=== PATIENT | male | born 1955 | race African-American/Black ===

== ENCOUNTER 2018-05-30 13:46 | Inpatient (IN) | payer MEDICARE, MEDICAID ==
[~2018-05-30] VITALS: Ht 180.3 cm; Wt 78.9 kg
[2018-05-30] MEDS ORDERED: KEPP250 PO (13:52)
[2018-05-30] MEDS ORDERED: LEVETIRACETAM 1000MG/100ML 100 ML IV ONE (14:30)
[2018-05-30 14:43] LABS: BASOPHILS % 0.8 % (0.0-2.0); HEMATOCRIT. 36.6 % (42.0-52.0); HEMOGLOBIN. 12.2 g/dL (14.0-18.0); LYMPHOCYTES % 10.9 % (20.0-50.0); MEAN CORPUSCULAR HEMOGLOBIN 31.5 pg (28.0-32.0); MEAN PLATELET VOLUME 8.3 fl (7.4-10.4); MONOCYTES % 12.2 % (2.0-8.0); NEUTROPHILS % 75.1 % (40.0-76.0); PLATELET 257 x1000/uL (130-400); RED BLOOD CELL COUNT 3.85 mill/uL (4.7-6.1); RED CELL DISTRIBUTION WIDTH 13.8 % (11.6-14.6)
[2018-05-30 14:48] LABS: CHLORIDE 107 mEq/L (98-107)
[2018-05-30 14:52] LABS: ETHANOL BLOOD < 10 mg/dL
[2018-05-30] MEDS ORDERED: LORAZEPAM 2MG/ML CPJ IM STA (14:53)
[2018-05-30] MEDS ORDERED: LORAZEPAM 2MG/ML CPJ ONE (15:04)
[2018-05-30] MEDS ORDERED: LORAZEPAM 2MG/ML CPJ IV ONE (15:15)
[2018-05-30] MEDS ORDERED: SODIUM CHLORIDE 0.9% 1,000 ML IV ONE (19:30)
[2018-05-30 23:00] VITALS: BP_SYST 151; BP_SYST 168; BP_DIAS 78; BP_DIAS 87
[2018-05-30] MEDS ORDERED: CLONIDINE 0.1MG TABLET PO PRN (23:30)
[2018-05-30] MEDS ORDERED: LORAZEPAM 2MG/ML CPJ IV PRN (23:30)
[2018-05-31] MEDS ORDERED: DIPHENHYDRAMINE 50MG/ML VIAL IV PRN (02:30)
[2018-05-31 04:00] VITALS: BP 120/73
[2018-05-31 08:00] VITALS: BP 124/71
[2018-05-31] MEDS: AMLODIPINE 10MG TABLET PO SCH (10:38)
[2018-05-31] MEDS: LEVETIRACETAM 500MG TABLET PO SCH ×2 (10:38→20:39)
[2018-05-31 12:00] VITALS: BP 118/59
[2018-05-31 16:00] VITALS: BP 107/61
[2018-05-31 20:00] VITALS: BP 103/62
[2018-06-01] VITALS: BP 110/68
[2018-06-01] MEDS: LORAZEPAM 2MG/ML CPJ IV PRN (00:15)
[2018-06-01 04:00] VITALS: BP 110/74
[2018-06-01 05:59] LABS: *AMPHETAMINES SCREEN URINE NEGATIVE (NEGATIVE); *BARBITURATES SCREEN URINE NEGATIVE (NEGATIVE); *BENZODIAZEPINES SCREEN URINE PRESUMTIVE POSITIVE (NEGATIVE); *COCAINE SCREEN URINE NEGATIVE (NEGATIVE); METHADONE URINE SCREEN NEGATIVE (NEGATIVE)
[2018-06-01 06:00] LABS: CANNABINOID URINE SCREEN PRESUMTIVE POSITIVE (NEGATIVE); OPIATES URINE SCREEN NEGATIVE (NEGATIVE); PHENCYCLIDINE URINE SCREEN NEGATIVE (NEGATIVE)
[2018-06-01 08:00] VITALS: BP 129/77
[2018-06-01] MEDS: LEVETIRACETAM 500MG TABLET PO SCH ×2 (08:13→21:13)
[2018-06-01] MEDS: AMLODIPINE 10MG TABLET PO SCH (08:14)
[2018-06-01 12:00] VITALS: BP 118/69
[2018-06-01] MEDS: LACTULOSE 20G/30ML UDC PO SCH (12:37)
[2018-06-01 16:00] VITALS: BP 101/58
[2018-06-01 20:00] VITALS: BP 102/65
[2018-06-02] VITALS: BP 113/68
[2018-06-02 04:00] VITALS: BP 111/73
[2018-06-02 08:00] VITALS: BP 114/71
[2018-06-02] MEDS: AMLODIPINE 10MG TABLET PO SCH (09:03)
[2018-06-02] MEDS: LEVETIRACETAM 500MG TABLET PO SCH ×2 (09:03→20:43)
[2018-06-02 12:00] VITALS: BP 118/69
[2018-06-02] MEDS: LACTULOSE 20G/30ML UDC PO SCH (13:09)
[2018-06-02 16:00] VITALS: BP 108/66
[2018-06-02] MEDS: LORAZEPAM 2MG/ML CPJ IV PRN (16:00)
[2018-06-02 20:00] VITALS: BP 106/70
[2018-06-03] VITALS (9 sets, daily range): BP systolic 90–107; BP diastolic 55–68
[2018-06-03] MEDS: AMLODIPINE 10MG TABLET PO SCH (08:57)
[2018-06-03] MEDS: LACTULOSE 20G/30ML UDC PO SCH (09:13)
[2018-06-03] MEDS: LEVETIRACETAM 500MG TABLET PO SCH ×2 (09:13→20:56)
== END 2018-06-03 22:30 | DRG 101 ==
LOC: ER 13:51 → 8WST 16:44 → EDBEDREQ 17:04 → EDBEDREQTM 17:04 → ENRESERV 20:54 → EDBEDREQ 22:29 → 8WST 06-03 14:49
PROVIDERS: ADMIT Internal Medicine; ATTEND Internal Medicine
DX: G40.409 Other generalized epilepsy and epileptic syndromes, not intractable, without status epilepticus (principal); D64.9 Anemia, unspecified; I87.2 Venous insufficiency (chronic) (peripheral); I10 Essential (primary) hypertension; G31.9 Degenerative disease of nervous system, unspecified
CPT/HCPCS: 36415; 70551; 71045; 80305; 82140; 82962; 93005; 93970; 96361; 96365; 96372; 96375; 97116; 97162; 97530; 99285; G0482; J1200; J1953; J2060

== ENCOUNTER 2018-09-14 06:43 | Emergency (ER) | payer MEDICARE, MEDICAID ==
[~2018-09-14] VITALS: Ht 177.8 cm; Wt 77.0 kg
[2018-09-14] MEDS ORDERED: LEVETIRACETAM 1000MG/100ML 100 ML IV ONE (08:00)
[2018-09-14 08:28] LABS: BASOPHILS % 0.6 % (0.0-2.0); EOSINOPHILS % 0.2 % (0.0-5.0); HEMATOCRIT. 37.4 % (42.0-52.0); HEMOGLOBIN. 12.3 g/dL (14.0-18.0); LYMPHOCYTES % 10.3 % (20.0-50.0); MEAN CORPUSCULAR HEMOGLOBIN 30.9 pg (28.0-32.0); MEAN CORPUSCULAR VOLUME 94.3 fL (80.0-94.0); MEAN PLATELET VOLUME 7.6 fl (7.4-10.4); MONOCYTES % 12.7 % (2.0-8.0); NEUTROPHILS % 76.2 % (40.0-76.0); PLATELET 256 x1000/uL (130-400); RED BLOOD CELL COUNT 3.96 mill/uL (4.7-6.1); RED CELL DISTRIBUTION WIDTH 13.5 % (11.6-14.6)
[2018-09-14 08:34] LABS: CHLORIDE 104 mEq/L (98-107)
[2018-09-14 08:38] LABS: ETHANOL BLOOD < 10 mg/dL
[2018-09-14 08:42] LABS: CARBAMAZEPINE < 0.5 ug/mL (4-12)
[2018-09-14 08:45] LABS: PHENOBARBITAL < 2.1 ug/mL (15.0-40.0)
[2018-09-14 09:47] LABS: CLARITY URINE CLEAR (CLEAR); COLOR URINE YELLOW (YELLOW); KETONES URINE NEGATIVE (NEGATIVE); LEUKOCYTE ESTERASE URINE NEGATIVE (NEGATIVE); NITRITE URINE NEGATIVE (NEGATIVE); OCCULT BLOOD URINE 2+ (NEGATIVE); PROTEIN URINE NEGATIVE (NEGATIVE); SPECIFIC GRAVITY URINE 1.019 (1.005-1.030)
[2018-09-14 10:16] LABS: *AMPHETAMINES SCREEN URINE NEGATIVE (NEGATIVE); *BARBITURATES SCREEN URINE NEGATIVE (NEGATIVE); *BENZODIAZEPINES SCREEN URINE PRESUMTIVE POSITIVE (NEGATIVE)
[2018-09-14 10:17] LABS: CANNABINOID URINE SCREEN PRESUMTIVE POSITIVE (NEGATIVE); METHADONE URINE SCREEN NEGATIVE (NEGATIVE); OPIATES URINE SCREEN NEGATIVE (NEGATIVE); PHENCYCLIDINE URINE SCREEN NEGATIVE (NEGATIVE)
[2018-09-14 10:18] LABS: *COCAINE SCREEN URINE NEGATIVE (NEGATIVE)
[2018-09-14 11:36] VITALS: BP 141/86
[2018-09-16] MEDS ORDERED: [UNRECOGNIZED DRUG - REMARK] (22:04)
[2018-09-19] MEDS ORDERED: LEVE500T19 PO (17:54)
== END 2018-09-14 12:21 | disposition home or self-care (01) ==
LOC: ER 06:49
DX: G40.909 Epilepsy, unspecified, not intractable, without status epilepticus (principal)
CPT/HCPCS: 36415; 80053; 80156; 80165; 80184; 80185; 80305; 80320; 81003; 82962; 85025; 96365; 96366; 99283; J1953; G0480

== ENCOUNTER 2018-09-14 14:15 | Emergency (ER) | payer MEDICARE, MEDICAID ==
[~2018-09-14] VITALS: Ht 175.3 cm; Wt 72.5 kg
[2018-09-14] MEDS ORDERED: SODIUM CHLORIDE 0.9% 1,000 ML IV ONE (15:30)
[2018-09-14] MEDS ORDERED: LEVETIRACETAM 1000MG/100ML 100 ML IV NR (18:30)
[2018-09-14 20:21] VITALS: BP 154/90
[2018-09-16] MEDS ORDERED: [UNRECOGNIZED DRUG - REMARK] (22:04)
[2018-09-19] MEDS ORDERED: LEVE500T19 PO (17:54)
== END 2018-09-14 20:42 | disposition home or self-care (01) ==
LOC: ER 14:15
DX: G40.909 Epilepsy, unspecified, not intractable, without status epilepticus (principal); D64.9 Anemia, unspecified; R00.0 Tachycardia, unspecified; F17.210 Nicotine dependence, cigarettes, uncomplicated; F12.10 Cannabis abuse, uncomplicated
CPT/HCPCS: 99283; J1953; J7030

== ENCOUNTER 2019-04-28 16:45 | Inpatient (IN) | payer MEDICARE, MEDICAID ==
[~2019-04-28] VITALS: Ht 172.7 cm; Wt 81.4 kg
[~2019-04-28 16:45] MED LIST: LEVE500T19 PO; [UNRECOGNIZED DRUG - REMARK]
[2019-04-28] MEDS ORDERED: LORAZEPAM 2MG/ML CPJ ONE (17:10)
[2019-04-28] MEDS ORDERED: SODIUM CHLORIDE 0.9% 1,000 ML IV ONE (17:10)
[2019-04-28] MEDS ORDERED: LORAZEPAM 2MG/ML CPJ IV ONE (17:15)
[2019-04-28] MEDS ORDERED: LEVETIRACETAM 500MG PREMIX 100 ML IV ONE (17:15)
[2019-04-28 18:33] LABS: CHLORIDE 103 mEq/L (98-107); INR 1.2; PROTHROMBIN TIME 11.9 sec (9.6-11.0)
[2019-04-28 18:34] LABS: BG BASE EXCESS 1.5 mmol/L (-2.0-2.0); BG CARBOXYHEMOGLOBIN 0.7 % (0.5-1.5); BG DEOXYHEMOGLOBIN 3.7 % (0.0-5.0); BG FRACTION INSPIRED OXYGEN 21; BG METHEMOGLOBIN 0.2 % (0.0-1.5); BG OXYGEN SATURATION 96.3 % (92.0-98.5); BG OXYHEMOGLOBIN 95.4 % (94.0-97.0); BG PCO2 40.4 mmHg (35.0-45.0); BG PH 7.426 (7.350-7.450); BG PO2 79.2 mmHg (75.0-100.0); BG SAMPLE SITE RIGHT RADIAL; BG TOTAL HEMOGLOBIN 13.2 g/dL (12.0-18.0); BG VENT MODE ROOM AIR
[2019-04-28 18:36] LABS: ETHANOL BLOOD < 10 mg/dL
[2019-04-28 18:46] LABS: HEMATOCRIT. 37.7 % (42.0-52.0); HEMOGLOBIN. 12.5 g/dL (14.0-18.0); MEAN CORPUSCULAR VOLUME 96.3 fL (80.0-94.0); MEAN PLATELET VOLUME 8.2 fl (7.4-10.4); PLATELET 255 x1000/uL (130-400); RED BLOOD CELL COUNT 3.91 mill/uL (4.7-6.1); RED CELL DISTRIBUTION WIDTH 13.9 % (11.6-14.6)
[2019-04-28 18:48] LABS: CARBAMAZEPINE < 0.5 ug/mL (4-12); PHENOBARBITAL < 2.1 ug/mL (15.0-40.0)
[2019-04-28] MEDS ORDERED: ASPIRIN 300MG SUPP PR ONE (19:00)
[2019-04-28] MEDS ORDERED: DOCUSATE SODIUM 100MG CAPSULE PO PRN (19:15)
[2019-04-28] MEDS ORDERED: ZOLPIDEM TARTRATE 5MG TABLET PO PRN (19:15)
[2019-04-28] MEDS ORDERED: NA PHOS,M-B/NA PHOS,DI-BA ENEMA 118ML PR PRN (19:15)
[2019-04-28] MEDS ORDERED: ACETAMINOPHEN 325MG TABLET PO PRN (19:15)
[2019-04-28] MEDS ORDERED: TRAMADOL 50MG TABLET PO PRN (19:15)
[2019-04-28] MEDS ORDERED: IPRATROPIUM/ALBUTEROL 0.5-3(2.5)MG/3ML NEB NEB PRN (19:15)
[2019-04-28] MEDS ORDERED: CLONIDINE 0.1MG TABLET PO PRN (19:15)
[2019-04-28] MEDS ORDERED: NITROGLYCERIN 0.4MG TABLET SL SL PRN (19:15)
[2019-04-28] MEDS ORDERED: MAGNESIUM/ALUMINUM HYDROXIDE/SIMETHICONE 30ML UDC PO PRN (19:15)
[2019-04-28] MEDS ORDERED: GUAIFENESIN 200MG/10ML SUGAR FREE UDC PO PRN (19:15)
[2019-04-28] MEDS ORDERED: LORAZEPAM 2MG/ML CPJ IV PRN (19:15)
[2019-04-28] MEDS ORDERED: ONDANSETRON HCL 4MG/2ML INJ IV PRN (19:15)
[2019-04-28 19:45] LABS: CREATINE KINASE MB FRACTION 17.4 ng/mL (0.5-3.6); PLATELET ESTIMATE NORMAL
[2019-04-28] MEDS ORDERED: ATORVASTATIN CALCIUM 40MG TABLET PO SCH (21:00)
[2019-04-29] VITALS (15 sets, daily range): BP systolic 108–136; BP diastolic 67–79
[2019-04-29] MEDS: ENOXAPARIN 100MG/ML SYR SUBCUT SCH ×2 (01:51→14:24)
[2019-04-29] MEDS ORDERED: PHENYTOIN SODIUM 1,000 MG in SODIUM CHLORIDE 0.9% 100 ML IV SCH (02:00)
[2019-04-29] MEDS: DIVALPROEX SODIUM 250MG DR TABLET PO SCH ×3 (08:33→21:23)
[2019-04-29] MEDS ORDERED: LEVETIRACETAM 500 MG in SODIUM CHLORIDE 0.9% 100 ML IV SCH (09:00)
[2019-04-29] MEDS ORDERED: LEVETIRACETAM 500MG PREMIX 100 ML IV SCH (09:30)
[2019-04-29] MEDS: FAMOTIDINE 20MG TABLET PO SCH ×2 (09:37→21:23)
[2019-04-29] MEDS: ASPIRIN 81MG EC TABLET PO SCH (09:37)
[2019-04-29] MEDS: CLOPIDOGREL 75MG TABLET PO SCH (09:39)
[2019-04-29] MEDS: ENOXAPARIN 80MG/0.8ML SYR SUBCUT SCH (21:23)
[2019-04-29] MEDS: LEVETIRACETAM 1,000 MG in SODIUM CHLORIDE 0.9% 100 ML IV SCH (21:23)
[2019-04-30] VITALS (12 sets, daily range): BP systolic 108–149; BP diastolic 66–97
[2019-04-30] MEDS: DIVALPROEX SODIUM 250MG DR TABLET PO SCH ×3 (05:17→22:02)
[2019-04-30] MEDS ORDERED: GADOBENATE DIMEGLUMINE 529 MG/ML 10ML IV ONE (08:24)
[2019-04-30] MEDS: ENOXAPARIN 80MG/0.8ML SYR SUBCUT SCH ×2 (09:47→22:03)
[2019-04-30] MEDS: LEVETIRACETAM 1,000 MG in SODIUM CHLORIDE 0.9% 100 ML IV SCH ×2 (09:47→22:03)
[2019-04-30] MEDS: FAMOTIDINE 20MG TABLET PO SCH ×2 (09:47→22:04)
[2019-04-30] MEDS: ASPIRIN 81MG EC TABLET PO SCH (09:47)
[2019-04-30] MEDS: CLOPIDOGREL 75MG TABLET PO SCH (09:47)
[2019-04-30 11:01] LABS: *AMPHETAMINES SCREEN URINE NEGATIVE (NEGATIVE); *BARBITURATES SCREEN URINE NEGATIVE (NEGATIVE); *BENZODIAZEPINES SCREEN URINE NEGATIVE (NEGATIVE); *COCAINE SCREEN URINE NEGATIVE (NEGATIVE); CANNABINOID URINE SCREEN PRESUMTIVE POSITIVE (NEGATIVE); METHADONE URINE SCREEN NEGATIVE (NEGATIVE); OPIATES URINE SCREEN NEGATIVE (NEGATIVE); PHENCYCLIDINE URINE SCREEN NEGATIVE (NEGATIVE)
[2019-04-30] MEDS ORDERED: PHENYTOIN SODIUM 700 MG in SODIUM CHLORIDE 0.9% 100 ML IV NR (14:00)
[2019-04-30] MEDS: PHENYTOIN SODIUM EXTENDED 100MG CAPSULE PO SCH ×2 (14:28→22:02)
[2019-05-01] VITALS (8 sets, daily range): BP systolic 98–148; BP diastolic 58–78
[2019-05-01] MEDS: PHENYTOIN SODIUM EXTENDED 100MG CAPSULE PO SCH ×4 (05:55→22:00)
[2019-05-01] MEDS: DIVALPROEX SODIUM 250MG DR TABLET PO SCH ×3 (05:55→21:25)
[2019-05-01] MEDS: ASPIRIN 81MG EC TABLET PO SCH (09:06)
[2019-05-01] MEDS: FAMOTIDINE 20MG TABLET PO SCH ×2 (09:06→21:25)
[2019-05-01] MEDS: LEVETIRACETAM 1,000 MG in SODIUM CHLORIDE 0.9% 100 ML IV SCH ×2 (09:06→21:24)
[2019-05-01] MEDS: ENOXAPARIN 80MG/0.8ML SYR SUBCUT SCH ×2 (09:06→21:27)
[2019-05-01] MEDS: CLOPIDOGREL 75MG TABLET PO SCH (09:09)
[2019-05-02] VITALS (8 sets, daily range): BP systolic 95–123; BP diastolic 58–76
[2019-05-02 06:12] LABS: HEMATOCRIT. 34.4 % (42.0-52.0); HEMOGLOBIN. 11.6 g/dL (14.0-18.0); MEAN CORPUSCULAR HEMOGLOBIN 32.4 pg (28.0-32.0); MEAN CORPUSCULAR VOLUME 96.1 fL (80.0-94.0); MEAN PLATELET VOLUME 8.2 fl (7.4-10.4); PLATELET 221 x1000/uL (130-400); RED BLOOD CELL COUNT 3.59 mill/uL (4.7-6.1); RED CELL DISTRIBUTION WIDTH 13.5 % (11.6-14.6)
[2019-05-02 06:48] LABS: CHLORIDE 105 mEq/L (98-107)
[2019-05-02] MEDS: DIVALPROEX SODIUM 250MG DR TABLET PO SCH ×3 (07:08→22:19)
[2019-05-02] MEDS: LEVETIRACETAM 1,000 MG in SODIUM CHLORIDE 0.9% 100 ML IV SCH ×2 (08:33→21:36)
[2019-05-02] MEDS: CLOPIDOGREL 75MG TABLET PO SCH (08:34)
[2019-05-02] MEDS: ENOXAPARIN 80MG/0.8ML SYR SUBCUT SCH (08:34)
[2019-05-02] MEDS: FAMOTIDINE 20MG TABLET PO SCH ×2 (08:34→21:36)
[2019-05-02] MEDS: ASPIRIN 81MG EC TABLET PO SCH (08:34)
[2019-05-02 10:59] LABS: PLATELET ESTIMATE NORMAL
[2019-05-02] MEDS: PHENYTOIN SODIUM EXTENDED 100MG CAPSULE PO SCH (21:36)
[2019-05-03] VITALS (8 sets, daily range): BP systolic 105–132; BP diastolic 57–82
[2019-05-03] MEDS ORDERED: DIVALPROEX SODIUM 125MG EC TABLET PO SCH (05:45)
[2019-05-03 08:20] LABS: FOLIC ACID (FOLATE) SERUM > 20.00 ng/mL (>5.38)
[2019-05-03 08:24] LABS: VITAMIN B12 SERUM 873 pg/mL (211-911)
[2019-05-03] MEDS ORDERED: ENOXAPARIN 30MG/0.3ML SYR SUBCUT SCH (09:00)
[2019-05-03] MEDS: ASPIRIN 81MG EC TABLET PO SCH (09:00)
[2019-05-03] MEDS: FAMOTIDINE 20MG TABLET PO SCH (09:00)
[2019-05-03] MEDS: CLOPIDOGREL 75MG TABLET PO SCH (09:00)
[2019-05-03] MEDS: LEVETIRACETAM 1,000 MG in SODIUM CHLORIDE 0.9% 100 ML IV SCH (09:52)
[2019-05-03] MEDS: DIVALPROEX SODIUM 250MG DR TABLET PO SCH (16:42)
== END 2019-05-03 18:47 | DRG 64 ==
LOC: ER 16:45 → EDBEDREQSVC 17:22 → EDBEDREQ 17:22 → 5EST 18:48 → EDBEDREQ 18:57 → ENRESERV 20:31
PROVIDERS: ADMIT Internal Medicine; ATTEND Internal Medicine
DX: I63.9 Cerebral infarction, unspecified (principal); I21.4 Non-ST elevation (NSTEMI) myocardial infarction; G92 Toxic encephalopathy; G82.50 Quadriplegia, unspecified; M62.82 Rhabdomyolysis; G95.89 Other specified diseases of spinal cord; I69.354 Hemiplegia and hemiparesis following cerebral infarction affecting left non-dominant side; R47.01 Aphasia; D64.9 Anemia, unspecified; I10 Essential (primary) hypertension; E53.8 Deficiency of other specified B group vitamins; D72.829 Elevated white blood cell count, unspecified; G40.409 Other generalized epilepsy and epileptic syndromes, not intractable, without status epilepticus; M47.9 Spondylosis, unspecified; R26.9 Unspecified abnormalities of gait and mobility; R47.1 Dysarthria and anarthria; R22.1 Localized swelling, mass and lump, neck; M48.00 Spinal stenosis, site unspecified; R13.10 Dysphagia, unspecified; Z79.02 Long term (current) use of antithrombotics/antiplatelets; Z82.49 Family history of ischemic heart disease and other diseases of the circulatory system; Z91.14 Patient's other noncompliance with medication regimen; Z79.899 Other long term (current) drug therapy
CPT/HCPCS: 36415; 36600; 70551; 71045; 72156; 80048; 80053; 80061; 80156; 80165; 80184; 80185; 80305; 80320; 82140; 82375; 82550; 82553; 82607; 82746; 82805; 82962; 83036; 84443; 84484; 85025; 86850; 86900; 92610; 93005; 93306; 93880; 93970; 96361; 96365; 96375; 97162; 97166; 99291; A9577; J1165; J1650; J1953; J2060; J7030; J7050; G0480

== ENCOUNTER 2019-07-10 12:58 | Inpatient (IN) | payer MEDICARE, MEDICAID ==
[~2019-07-10] VITALS: Ht 175.3 cm; Wt 80.7 kg
[2019-07-10] MEDS ORDERED: SODIUM CHLORIDE 0.9% 1,000 ML IV ONE (15:23)
[2019-07-10 15:44] LABS: HEMATOCRIT. 35.1 % (42.0-52.0); MEAN CORPUSCULAR HEMOGLOBIN 32.3 pg (28.0-32.0); MEAN CORPUSCULAR VOLUME 94.3 fL (80.0-94.0); MEAN PLATELET VOLUME 8.9 fl (7.4-10.4); PLATELET 240 x1000/uL (130-400); RED BLOOD CELL COUNT 3.73 mill/uL (4.7-6.1); RED CELL DISTRIBUTION WIDTH 12.6 % (11.6-14.6)
[2019-07-10 15:51] LABS: CHLORIDE 105 mEq/L (98-107)
[2019-07-10 15:58] LABS: ETHANOL BLOOD < 10 mg/dL
[2019-07-10 16:10] LABS: CLARITY URINE CLEAR (CLEAR); COLOR URINE YELLOW (YELLOW); KETONES URINE TRACE (NEGATIVE); LEUKOCYTE ESTERASE URINE NEGATIVE (NEGATIVE); NITRITE URINE NEGATIVE (NEGATIVE); OCCULT BLOOD URINE NEGATIVE (NEGATIVE); PH URINE 6.5 (4.5-8.0); PROTEIN URINE TRACE (NEGATIVE)
[2019-07-10] MEDS ORDERED: LEVETIRACETAM 500MG PREMIX 100 ML IV ONE ×2 (16:15)
[2019-07-10 16:25] LABS: PLATELET ESTIMATE NORMAL
[2019-07-10 16:31] LABS: *AMPHETAMINES SCREEN URINE NEGATIVE (NEGATIVE); *BARBITURATES SCREEN URINE NEGATIVE (NEGATIVE); *BENZODIAZEPINES SCREEN URINE NEGATIVE (NEGATIVE); *COCAINE SCREEN URINE NEGATIVE (NEGATIVE); METHADONE URINE SCREEN NEGATIVE (NEGATIVE); OPIATES URINE SCREEN NEGATIVE (NEGATIVE); PHENCYCLIDINE URINE SCREEN NEGATIVE (NEGATIVE)
[2019-07-10 16:32] LABS: CANNABINOID URINE SCREEN NEGATIVE (NEGATIVE)
[2019-07-10] MEDS ORDERED: ONDANSETRON HCL 4MG/2ML INJ IV PRN (20:45)
[2019-07-10] MEDS ORDERED: ACETAMINOPHEN 325MG TABLET PO PRN (20:45)
[2019-07-10] MEDS ORDERED: LORAZEPAM 2MG/ML CPJ IV PRN (20:45)
[2019-07-10] MEDS: PHENYTOIN SODIUM EXTENDED 100MG CAPSULE PO SCH (21:00)
[2019-07-11] VITALS (7 sets, daily range): BP systolic 102–126; BP diastolic 56–80
[2019-07-11] MEDS ORDERED: INFLUENZA VIRUS VACCINE(AFLURIA) 0.5ML SYR IM ONE (06:00)
[2019-07-11] MEDS ORDERED: PNEUMOCOCCAL 23-VAL P-SAC VAC 0.5 ML IM ONE (06:00)
[2019-07-11] MEDS: LEVETIRACETAM 500MG TABLET PO SCH ×2 (06:16→17:26)
[2019-07-11 08:15] LABS: HEMOGLOBIN. 10.2 g/dL (14.0-18.0); MEAN CORPUSCULAR HEMOGLOBIN 32.9 pg (28.0-32.0); MEAN CORPUSCULAR VOLUME 93.4 fL (80.0-94.0); MEAN PLATELET VOLUME 7.7 fl (7.4-10.4); PLATELET 213 x1000/uL (130-400); RED BLOOD CELL COUNT 3.11 mill/uL (4.7-6.1); RED CELL DISTRIBUTION WIDTH 12.4 % (11.6-14.6)
[2019-07-11 08:33] LABS: CHLORIDE 107 mEq/L (98-107)
[2019-07-11 10:33] LABS: PLATELET ESTIMATE NORMAL
[2019-07-11] MEDS: THIAMINE HCL 100MG TABLET PO SCH (12:31)
[2019-07-11] MEDS: MULTIVITAMINS,THER W-MINERALS TABLET PO SCH (12:31)
[2019-07-11] MEDS: FOLIC ACID 1MG TABLET PO SCH (12:31)
[2019-07-11] MEDS: CLOPIDOGREL 75MG TABLET PO SCH (12:31)
[2019-07-11] MEDS: PHENYTOIN SODIUM EXTENDED 100MG CAPSULE PO SCH (20:59)
[2019-07-12] VITALS: BP 108/66
[2019-07-12 04:00] VITALS: BP 109/61
[2019-07-12] MEDS: LEVETIRACETAM 500MG TABLET PO SCH ×2 (05:58→17:59)
[2019-07-12 06:40] LABS: HEMATOCRIT. 30.4 % (42.0-52.0); HEMOGLOBIN. 10.6 g/dL (14.0-18.0); MEAN CORPUSCULAR HEMOGLOBIN 32.5 pg (28.0-32.0); MEAN CORPUSCULAR VOLUME 93.6 fL (80.0-94.0); MEAN PLATELET VOLUME 8.5 fl (7.4-10.4); PLATELET 217 x1000/uL (130-400); RED BLOOD CELL COUNT 3.25 mill/uL (4.7-6.1); RED CELL DISTRIBUTION WIDTH 12.5 % (11.6-14.6)
[2019-07-12 07:24] LABS: CHLORIDE 106 mEq/L (98-107)
[2019-07-12 08:00] VITALS: BP 114/71
[2019-07-12] MEDS: FOLIC ACID 1MG TABLET PO SCH (09:04)
[2019-07-12] MEDS: CLOPIDOGREL 75MG TABLET PO SCH (09:04)
[2019-07-12] MEDS: THIAMINE HCL 100MG TABLET PO SCH (09:04)
[2019-07-12] MEDS: MULTIVITAMINS,THER W-MINERALS TABLET PO SCH (09:04)
[2019-07-12] MEDS ORDERED: PHENYTOIN SODIUM 800 MG in SODIUM CHLORIDE 0.9% 100 ML IV NR (09:30)
[2019-07-12 12:00] VITALS: BP 103/64
[2019-07-12 13:58] LABS: PLATELET ESTIMATE NORMAL
[2019-07-12 16:00] VITALS: BP 115/68
[2019-07-12 20:00] VITALS: BP 109/62
[2019-07-12] MEDS: PHENYTOIN SODIUM EXTENDED 100MG CAPSULE PO SCH (21:44)
[2019-07-13] VITALS: BP 109/58
[2019-07-13 04:00] VITALS: BP 110/69
[2019-07-13] MEDS: LEVETIRACETAM 500MG TABLET PO SCH ×2 (05:47→18:42)
[2019-07-13 08:10] VITALS: BP 115/62
[2019-07-13] MEDS: THIAMINE HCL 100MG TABLET PO SCH (09:35)
[2019-07-13] MEDS: FOLIC ACID 1MG TABLET PO SCH (09:35)
[2019-07-13] MEDS: MULTIVITAMINS,THER W-MINERALS TABLET PO SCH (09:35)
[2019-07-13] MEDS: CLOPIDOGREL 75MG TABLET PO SCH (09:35)
[2019-07-13] MEDS ORDERED: PHENYTOIN SODIUM 500 MG in SODIUM CHLORIDE 0.9% 100 ML IV ONE (10:00)
[2019-07-13 12:08] VITALS: BP 102/64
[2019-07-13 16:08] VITALS: BP 113/69
[2019-07-13 20:00] VITALS: BP 110/59
[2019-07-13] MEDS: PHENYTOIN SODIUM EXTENDED 100MG CAPSULE PO SCH (22:20)
[2019-07-14] VITALS: BP 115/70
[2019-07-14 04:00] VITALS: BP 105/59
[2019-07-14] MEDS: LEVETIRACETAM 500MG TABLET PO SCH ×2 (06:05→18:04)
[2019-07-14 08:00] VITALS: BP 120/73
[2019-07-14] MEDS ORDERED: PHENYTOIN SODIUM 800 MG in SODIUM CHLORIDE 0.9% 100 ML IV ONE (10:30)
[2019-07-14] MEDS: FOLIC ACID 1MG TABLET PO SCH (10:38)
[2019-07-14] MEDS: MULTIVITAMINS,THER W-MINERALS TABLET PO SCH (10:38)
[2019-07-14] MEDS: CLOPIDOGREL 75MG TABLET PO SCH (10:38)
[2019-07-14] MEDS: THIAMINE HCL 100MG TABLET PO SCH (10:39)
[2019-07-14 12:00] VITALS: BP 108/64
[2019-07-14 16:00] VITALS: BP 102/57
[2019-07-14 20:00] VITALS: BP 95/58
[2019-07-14] MEDS: PHENYTOIN SODIUM EXTENDED 100MG CAPSULE PO SCH (20:40)
[2019-07-15] VITALS: BP 106/62
[2019-07-15 04:00] VITALS: BP 109/65
[2019-07-15] MEDS: LEVETIRACETAM 500MG TABLET PO SCH ×2 (05:09→17:07)
[2019-07-15] MEDS: THIAMINE HCL 100MG TABLET PO SCH (09:13)
[2019-07-15] MEDS: MULTIVITAMINS,THER W-MINERALS TABLET PO SCH (09:13)
[2019-07-15] MEDS: FOLIC ACID 1MG TABLET PO SCH (09:13)
[2019-07-15] MEDS: CLOPIDOGREL 75MG TABLET PO SCH (09:15)
[2019-07-15 12:00] VITALS: BP 108/63
[2019-07-15 16:00] VITALS: BP 115/67
[2019-07-15 20:00] VITALS: BP 106/66
[2019-07-15] MEDS: PHENYTOIN SODIUM EXTENDED 100MG CAPSULE PO SCH (21:00)
[2019-07-16] VITALS: BP 118/73
[2019-07-16 04:00] VITALS: BP 111/69
[2019-07-16] MEDS: LEVETIRACETAM 500MG TABLET PO SCH (06:29)
[2019-07-16 08:00] VITALS: BP 124/71
[2019-07-16] MEDS: THIAMINE HCL 100MG TABLET PO SCH (09:14)
[2019-07-16] MEDS: MULTIVITAMINS,THER W-MINERALS TABLET PO SCH (09:14)
[2019-07-16] MEDS: FOLIC ACID 1MG TABLET PO SCH (09:14)
[2019-07-16] MEDS: CLOPIDOGREL 75MG TABLET PO SCH (09:14)
[2019-07-16] MEDS ORDERED: PHEN100C4 MT (10:57)
[2019-07-16] MEDS ORDERED: CLOP75TA4 MT (10:57)
[2019-07-16] MEDS ORDERED: LEVE1000 MT (10:57)
[2019-07-16 12:00] VITALS: BP 104/69
[2019-07-16 12:22] VITALS: BP 124/71
== END 2019-07-16 14:00 | disposition home health service (06) | DRG 101 ==
LOC: ER 13:09 → 6WST 16:52 → EDBEDREQTM 17:13 → EDBEDREQ 17:13 → ENRESERV 07-11 02:13
PROVIDERS: ADMIT Internal Medicine; ATTEND Internal Medicine
PROC: 4A00X4Z Measurement of Central Nervous Electrical Activity, External Approach (ICD-10-PCS; principal; 2019-07-12)
DX: G40.409 Other generalized epilepsy and epileptic syndromes, not intractable, without status epilepticus (principal); I69.354 Hemiplegia and hemiparesis following cerebral infarction affecting left non-dominant side; D64.9 Anemia, unspecified; I10 Essential (primary) hypertension; D49.7 Neoplasm of unspecified behavior of endocrine glands and other parts of nervous system; E53.8 Deficiency of other specified B group vitamins; Z91.14 Patient's other noncompliance with medication regimen; I25.2 Old myocardial infarction; Z91.19 Patient's noncompliance with other medical treatment and regimen; Z79.899 Other long term (current) drug therapy
CPT/HCPCS: 36415; 70551; 72141; 80048; 80053; 80185; 80305; 80320; 81003; 85025; 90686; 90732; 97162; 97166; 99285; J1165; J1953; J7030; J7050; G0480

== ENCOUNTER 2019-09-11 06:50 | Inpatient (IN) | payer MEDICARE, MEDICAID ==
[~2019-09-11] VITALS: Ht 182.9 cm; Wt 83.0 kg
[2019-09-11 04:00] VITALS: BP 118/69
[~2019-09-11 06:50] MED LIST changes: +CLOP75TA4 MT; +LEVE1000 MT; +PHEN100C4 MT; -[UNRECOGNIZED DRUG - REMARK]
[2019-09-11 08:18] LABS: BASOPHILS % 0.6 % (0.0-2.0); EOSINOPHILS % 0.1 % (0.0-5.0); HEMOGLOBIN. 11.5 g/dL (14.0-18.0); LYMPHOCYTES % 12.9 % (20.0-50.0); MEAN CORPUSCULAR VOLUME 94.5 fL (80.0-94.0); MEAN PLATELET VOLUME 7.8 fl (7.4-10.4); MONOCYTES % 12.6 % (2.0-8.0); NEUTROPHILS % 73.8 % (40.0-76.0); PLATELET 239 x1000/uL (130-400); RED CELL DISTRIBUTION WIDTH 13.2 % (11.6-14.6)
[2019-09-11 08:24] LABS: CHLORIDE 107 mEq/L (98-107)
[2019-09-11 08:28] LABS: ETHANOL BLOOD < 10 mg/dL
[2019-09-11 08:47] LABS: CLARITY URINE CLEAR (CLEAR); COLOR URINE YELLOW (YELLOW); KETONES URINE NEGATIVE (NEGATIVE); LEUKOCYTE ESTERASE URINE NEGATIVE (NEGATIVE); NITRITE URINE NEGATIVE (NEGATIVE); OCCULT BLOOD URINE NEGATIVE (NEGATIVE); PROTEIN URINE 1+ (NEGATIVE); UROBILINOGEN URINE 0.2 E.U./dL (0.2-1.0)
[2019-09-11 08:58] LABS: *AMPHETAMINES SCREEN URINE NEGATIVE (NEGATIVE); *BARBITURATES SCREEN URINE NEGATIVE (NEGATIVE); *BENZODIAZEPINES SCREEN URINE PRESUMTIVE POSITIVE (NEGATIVE)
[2019-09-11 08:59] LABS: *COCAINE SCREEN URINE NEGATIVE (NEGATIVE); METHADONE URINE SCREEN NEGATIVE (NEGATIVE); OPIATES URINE SCREEN NEGATIVE (NEGATIVE); PHENCYCLIDINE URINE SCREEN NEGATIVE (NEGATIVE)
[2019-09-11 09:00] LABS: CANNABINOID URINE SCREEN NEGATIVE (NEGATIVE)
[2019-09-11] MEDS ORDERED: PHENYTOIN SODIUM EXTENDED 100MG CAPSULE PO ONE (09:00)
[2019-09-11] MEDS ORDERED: LEVETIRACETAM 1000MG/100ML 100 ML IV ONE (09:00)
[2019-09-11] MEDS: PHENYTOIN 100 MG/4 ML UDC NG ONE ×2 (10:03→11:28)
[2019-09-11] MEDS ORDERED: ASPIRIN 325MG EC TABLET PO ONE (11:15)
[2019-09-11] MEDS ORDERED: ONDANSETRON HCL 4MG/2ML INJ IV PRN (15:45)
[2019-09-11 16:00] VITALS: BP 122/73
[2019-09-11 20:00] VITALS: BP 112/64
[2019-09-11] MEDS: PHENYTOIN SODIUM EXTENDED 100MG CAPSULE PO SCH (20:31)
[2019-09-11] MEDS: LEVETIRACETAM 500MG TABLET PO SCH (20:32)
[2019-09-11] MEDS ORDERED: LORAZEPAM 2MG/ML CPJ IV PRN (21:45)
[2019-09-12] VITALS: BP 99/61
[2019-09-12 04:00] VITALS: BP 118/69
[2019-09-12 08:00] VITALS: BP 112/72
[2019-09-12] MEDS: LEVETIRACETAM 500MG TABLET PO SCH ×2 (09:11→20:40)
[2019-09-12 12:00] VITALS: BP 95/50
[2019-09-12 16:00] VITALS: BP 97/65
[2019-09-12 20:00] VITALS: BP 107/65
[2019-09-12] MEDS: PHENYTOIN SODIUM EXTENDED 100MG CAPSULE PO SCH (20:40)
[2019-09-13] VITALS (7 sets, daily range): BP systolic 88–108; BP diastolic 52–64
[2019-09-13] MEDS: LEVETIRACETAM 500MG TABLET PO SCH ×2 (08:41→21:47)
[2019-09-13] MEDS: FOLIC ACID 1MG TABLET PO SCH (16:30)
[2019-09-13] MEDS: MULTIVITAMINS,THER W-MINERALS TABLET PO SCH (16:31)
[2019-09-13] MEDS: THIAMINE HCL 100MG TABLET PO SCH (16:31)
[2019-09-13] MEDS ORDERED: PHENYTOIN SODIUM 1,000 MG in SODIUM CHLORIDE 0.9% 100 ML IV SCH (17:00)
[2019-09-13] MEDS: ACETAMINOPHEN 325MG TABLET PO PRN ×4 (18:06→19:59)
[2019-09-13] MEDS ORDERED: KCL 20MEQ/100ML PREMIX 100 ML IV ONE ×2 (19:00)
[2019-09-13] MEDS ORDERED: KCL 20MEQ/100ML PREMIX 100 ML IV NR (21:00)
[2019-09-13 21:38] LABS: HEMATOCRIT. 33.2 % (42.0-52.0); HEMOGLOBIN. 11.1 g/dL (14.0-18.0); MEAN CORPUSCULAR HEMOGLOBIN 31.8 pg (28.0-32.0); MEAN CORPUSCULAR VOLUME 95.5 fL (80.0-94.0); MEAN PLATELET VOLUME 8.1 fl (7.4-10.4); PLATELET 202 x1000/uL (130-400); RED BLOOD CELL COUNT 3.48 mill/uL (4.7-6.1); RED CELL DISTRIBUTION WIDTH 13.2 % (11.6-14.6)
[2019-09-13] MEDS: PHENYTOIN SODIUM EXTENDED 100MG CAPSULE PO SCH (21:46)
[2019-09-13] MEDS: PIPERACILLIN/TAZOBACTAM 3.375 G in DEXT 5% WATER 100 ML IV SCH (21:49)
[2019-09-13] MEDS ORDERED: PIPERACILLIN/TAZOBACTAM 3.375 G/VIAL IV SCH (22:00)
[2019-09-13 22:15] LABS: PLATELET ESTIMATE NORMAL
[2019-09-14 00:20] VITALS: BP 96/58
[2019-09-14 04:00] VITALS: BP 95/61
[2019-09-14] MEDS: PIPERACILLIN/TAZOBACTAM 3.375 G in DEXT 5% WATER 100 ML IV SCH ×3 (06:00→16:49)
[2019-09-14 08:00] VITALS: BP 97/61
[2019-09-14] MEDS: MULTIVITAMINS,THER W-MINERALS TABLET PO SCH (09:11)
[2019-09-14] MEDS: THIAMINE HCL 100MG TABLET PO SCH (09:11)
[2019-09-14] MEDS: FOLIC ACID 1MG TABLET PO SCH (09:11)
[2019-09-14] MEDS: LEVETIRACETAM 500MG TABLET PO SCH ×2 (09:11→20:16)
[2019-09-14] MEDS: SODIUM CHL 0.9% + KCL 20MEQ/L 1,000 ML IV SCH ×3 (09:12→16:49)
[2019-09-14] MEDS ORDERED: LEVE1000 MT (11:42)
[2019-09-14] MEDS ORDERED: PHEN100C4 MT (11:42)
[2019-09-14 12:00] VITALS: BP 105/61
[2019-09-14 14:10] VITALS: BP_SYST 100; BP_SYST 105; BP_DIAS 61; BP_DIAS 64
[2019-09-14 16:00] VITALS: BP 100/64
[2019-09-14] MEDS: PHENYTOIN SODIUM EXTENDED 100MG CAPSULE PO SCH (20:16)
== END 2019-09-14 21:25 | disposition home health service (06) | DRG 100 ==
LOC: ER 06:50 → 6WST 12:25 → ENRESERV 13:14
PROVIDERS: ADMIT Internal Medicine; ATTEND Internal Medicine
DX: G40.909 Epilepsy, unspecified, not intractable, without status epilepticus (principal); G82.50 Quadriplegia, unspecified; I69.354 Hemiplegia and hemiparesis following cerebral infarction affecting left non-dominant side; R47.01 Aphasia; G95.89 Other specified diseases of spinal cord; D64.9 Anemia, unspecified; I10 Essential (primary) hypertension; I25.10 Atherosclerotic heart disease of native coronary artery without angina pectoris; R13.10 Dysphagia, unspecified; R47.1 Dysarthria and anarthria; Z91.19 Patient's noncompliance with other medical treatment and regimen; I25.2 Old myocardial infarction
CPT/HCPCS: 36415; 71045; 72170; 80053; 80185; 80305; 80320; 81003; 84145; 85025; 92610; 93005; 97116; 97162; 97166; 99291; J1165; J1953; J2543; J3480; J7050; J7060; G0480

== ENCOUNTER 2020-07-09 17:48 | Emergency (ER) | payer MEDICARE, MEDICAID ==
[~2020-07-09] VITALS: Ht 182.9 cm; Wt 108.0 kg
[~2020-07-09 17:48] MED LIST changes: +CLOP-31 MT; -CLOP75TA4 MT; -LEVE500T19 PO
[2020-07-09] MEDS ORDERED: LEVETIRACETAM 500MG PREMIX 100 ML IV ONE (18:15)
[2020-07-09 18:37] LABS: HEMATOCRIT. 31.5 % (42.0-52.0); HEMOGLOBIN. 10.6 g/dL (14.0-18.0); MEAN CORPUSCULAR HEMOGLOBIN 31.2 pg (28.0-32.0); MEAN CORPUSCULAR VOLUME 92.6 fL (80.0-94.0); MEAN PLATELET VOLUME 7.6 fl (7.4-10.4); PLATELET 272 x1000/uL (130-400); RED BLOOD CELL COUNT 3.41 mill/uL (4.7-6.1); RED CELL DISTRIBUTION WIDTH 13.3 % (11.6-14.6)
[2020-07-09 19:14] LABS: CHLORIDE 100 mEq/L (98-107)
[2020-07-09 20:34] LABS: CLARITY URINE CLEAR (CLEAR); COLOR URINE YELLOW (YELLOW); KETONES URINE TRACE (NEGATIVE); LEUKOCYTE ESTERASE URINE NEGATIVE (NEGATIVE); NITRITE URINE NEGATIVE (NEGATIVE); OCCULT BLOOD URINE NEGATIVE (NEGATIVE); PH URINE 6.5 (4.5-8.0); PROTEIN URINE NEGATIVE (NEGATIVE); SPECIFIC GRAVITY URINE 1.015 (1.005-1.030); UROBILINOGEN URINE 0.2 E.U./dL (0.2-1.0)
[2020-07-09] MEDS ORDERED: PHENYTOIN SODIUM EXTENDED 100MG CAPSULE PO ONE (21:15)
[2020-07-09 21:18] LABS: PLATELET ESTIMATE NORMAL
[2020-07-10 04:14] VITALS: BP 122/65
== END 2020-07-10 05:30 | disposition home or self-care (01) ==
LOC: ER 17:48
DX: G40.909 Epilepsy, unspecified, not intractable, without status epilepticus (principal); R89.2 Abnormal level of other drugs, medicaments and biological substances in specimens from other organs, systems and tissues; S00.512A Abrasion of oral cavity, initial encounter; W22.8XXA Striking against or struck by other objects, initial encounter; Y93.89 Activity, other specified; L97.219 Non-pressure chronic ulcer of right calf with unspecified severity; D64.9 Anemia, unspecified; I87.8 Other specified disorders of veins; R03.0 Elevated blood-pressure reading, without diagnosis of hypertension; Y92.89 Other specified places as the place of occurrence of the external cause
CPT/HCPCS: 36415; 70450; 80053; 80185; 81003; 82962; 85025; 93005; 96374; 99285; J1953

== ENCOUNTER 2020-07-11 09:52 | Emergency (ER) | payer MEDICARE, MEDICAID ==
[~2020-07-11] VITALS: Ht 180.3 cm; Wt 90.0 kg
[2020-07-11 11:50] LABS: BASOPHILS % 0.4 % (0.0-2.0); EOSINOPHILS % 0.1 % (0.0-5.0); HEMATOCRIT. 36.1 % (42.0-52.0); HEMOGLOBIN. 11.9 g/dL (14.0-18.0); MEAN CORPUSCULAR HEMOGLOBIN 30.6 pg (28.0-32.0); MEAN CORPUSCULAR VOLUME 92.6 fL (80.0-94.0); MEAN PLATELET VOLUME 7.7 fl (7.4-10.4); MONOCYTES % 12.9 % (2.0-8.0); NEUTROPHILS % 77.6 % (40.0-76.0); PLATELET 301 x1000/uL (130-400); RED CELL DISTRIBUTION WIDTH 13.6 % (11.6-14.6)
[2020-07-11 12:00] LABS: INR 1.1; PROTHROMBIN TIME 11.7 sec (9.6-11.0)
[2020-07-11 12:03] LABS: CHLORIDE 102 mEq/L (98-107)
[2020-07-11 12:08] LABS: ETHANOL BLOOD < 10 mg/dL
[2020-07-11 13:20] VITALS: BP 130/75
[2020-07-11] MEDS ORDERED: LEVETIRACETAM 500MG TABLET PO NR (14:00)
== END 2020-07-11 16:45 | disposition home or self-care (01) ==
LOC: ER 10:00
DX: R56.9 Unspecified convulsions (principal); I10 Essential (primary) hypertension; Z98.890 Other specified postprocedural states
CPT/HCPCS: 36415; 71045; 80053; 80185; 80307; 80320; 80329; 83605; 85025; 93005; 99285; G0480

== ENCOUNTER 2020-08-01 07:04 | Inpatient (IN) | payer MEDICARE, MEDICAID ==
[~2020-08-01] VITALS: Ht 175.3 cm; Wt 83.0 kg
[2020-08-01 08:39] LABS: HEMATOCRIT. 30.9 % (42.0-52.0); HEMOGLOBIN. 10.2 g/dL (14.0-18.0); MEAN CORPUSCULAR HEMOGLOBIN 30.6 pg (28.0-32.0); MEAN CORPUSCULAR VOLUME 92.4 fL (80.0-94.0); MEAN PLATELET VOLUME 7.7 fl (7.4-10.4); PLATELET 381 x1000/uL (130-400); RED BLOOD CELL COUNT 3.34 mill/uL (4.7-6.1); RED CELL DISTRIBUTION WIDTH 13.5 % (11.6-14.6)
[2020-08-01 08:43] LABS: CHLORIDE 104 mEq/L (98-107)
[2020-08-01 08:47] LABS: ETHANOL BLOOD < 10 mg/dL
[2020-08-01 08:56] LABS: PLATELET ESTIMATE NORMAL
[2020-08-01] MEDS ORDERED: PHENYTOIN SODIUM 500 MG in SODIUM CHLORIDE 0.9% 50 ML IV ONE (09:00)
[2020-08-01] MEDS ORDERED: LEVETIRACETAM 500MG PREMIX 100 ML IV ONE (09:00)
[2020-08-01] MEDS ORDERED: SODIUM CHLORIDE 0.9% 1000ML BAG (SEPSIS BOLUS) IV ONE (10:00)
[2020-08-01] MEDS ORDERED: CEFTRIAXONE 1 G PREMIX 50 ML IV ONE (10:00)
[2020-08-01 10:18] LABS: INR 1.1; PROTHROMBIN TIME 11.6 sec (9.6-11.0)
[2020-08-01 10:24] LABS: CLARITY URINE CLEAR (CLEAR); COLOR URINE YELLOW (YELLOW); KETONES URINE NEGATIVE (NEGATIVE); LEUKOCYTE ESTERASE URINE NEGATIVE (NEGATIVE); NITRITE URINE NEGATIVE (NEGATIVE); OCCULT BLOOD URINE NEGATIVE (NEGATIVE); PH URINE 5.5 (4.5-8.0); PROTEIN URINE NEGATIVE (NEGATIVE); SPECIFIC GRAVITY URINE 1.023 (1.005-1.030); UROBILINOGEN URINE 0.2 E.U./dL (0.2-1.0)
[2020-08-01 10:54] LABS: *AMPHETAMINES SCREEN URINE NEGATIVE (NEGATIVE); *BARBITURATES SCREEN URINE NEGATIVE (NEGATIVE); *BENZODIAZEPINES SCREEN URINE PRESUMTIVE POSITIVE (NEGATIVE)
[2020-08-01 10:55] LABS: *COCAINE SCREEN URINE NEGATIVE (NEGATIVE); CANNABINOID URINE SCREEN NEGATIVE (NEGATIVE); METHADONE URINE SCREEN NEGATIVE (NEGATIVE); OPIATES URINE SCREEN NEGATIVE (NEGATIVE); PHENCYCLIDINE URINE SCREEN NEGATIVE (NEGATIVE)
[2020-08-01] MEDS ORDERED: ONDANSETRON HCL 4MG/2ML INJ IV PRN (13:45)
[2020-08-01] MEDS ORDERED: MAGNESIUM/ALUMINUM HYDROXIDE/SIMETHICONE 30ML UDC PO PRN (13:45)
[2020-08-01] MEDS ORDERED: DOCUSATE SODIUM 100MG CAPSULE PO PRN (13:45)
[2020-08-01] MEDS ORDERED: GUAIFENESIN 200MG/10ML SUGAR FREE UDC PO PRN (13:45)
[2020-08-01] MEDS ORDERED: HYDROCODONE/ACETAMINOPHEN 5/325MG TABLET PO PRN (13:45)
[2020-08-01] MEDS ORDERED: ACETAMINOPHEN 325MG TABLET PO PRN (13:45)
[2020-08-01] MEDS ORDERED: CLONIDINE 0.1MG TABLET PO PRN (13:45)
[2020-08-01] MEDS: CLOPIDOGREL 75MG TABLET PO SCH (14:00)
[2020-08-01] MEDS: ASPIRIN 81MG EC TABLET PO SCH (14:00)
[2020-08-01 16:00] VITALS: BP 110/69
[2020-08-01 16:18] LABS: CREATINE KINASE 115 IU/L (39-308)
[2020-08-01] MEDS: SODIUM CHLORIDE 0.9% 1,000 ML IV SCH (18:43)
[2020-08-01 19:09] VITALS: BP 110/69
[2020-08-01 20:00] VITALS: BP 94/59
[2020-08-01] MEDS ORDERED: PHENYTOIN SODIUM EXTENDED 100MG CAPSULE PO SCH (21:00)
[2020-08-01] MEDS ORDERED: LEVETIRACETAM 500MG/5ML CUP PO SCH (21:00)
[2020-08-01 23:34] LABS: CREATINE KINASE 107 IU/L (39-308)
[2020-08-02] VITALS: BP 126/78
[2020-08-02 04:00] VITALS: BP 91/58
[2020-08-02] MEDS: SODIUM CHLORIDE 0.9% 1,000 ML IV SCH (04:29)
[2020-08-02 06:57] LABS: CHLORIDE 106 mEq/L (98-107)
[2020-08-02 07:20] LABS: BASOPHILS % 0.4 % (0.0-2.0); EOSINOPHILS % 0.2 % (0.0-5.0); HEMATOCRIT. 30.1 % (42.0-52.0); HEMOGLOBIN. 9.9 g/dL (14.0-18.0); LYMPHOCYTES % 8.9 % (20.0-50.0); MEAN CORPUSCULAR HEMOGLOBIN 30.3 pg (28.0-32.0); MEAN CORPUSCULAR VOLUME 92.4 fL (80.0-94.0); NEUTROPHILS % 81.5 % (40.0-76.0); PLATELET 365 x1000/uL (130-400); RED BLOOD CELL COUNT 3.25 mill/uL (4.7-6.1); RED CELL DISTRIBUTION WIDTH 13.8 % (11.6-14.6)
[2020-08-02 08:00] VITALS: BP 114/69
[2020-08-02] MEDS: ASPIRIN 81MG EC TABLET PO SCH (09:00)
[2020-08-02] MEDS: CLOPIDOGREL 75MG TABLET PO SCH (09:00)
[2020-08-02] MEDS: LEVETIRACETAM 1,000 MG in SODIUM CHLORIDE 0.9% 100 ML IV SCH ×2 (09:07→21:14)
[2020-08-02] MEDS: CEFTRIAXONE 1,000 MG in DEXTROSE 5% WATER 50 ML IV SCH (09:11)
[2020-08-02] MEDS: LORAZEPAM 2MG/ML CPJ IV PRN ×2 (09:22→19:30)
[2020-08-02 12:00] VITALS: BP 108/64
[2020-08-02] MEDS: DEXT 5%/0.45% NACL 1000ML 1,000 ML IV SCH (12:00)
[2020-08-02 16:00] VITALS: BP 111/65
[2020-08-02 20:00] VITALS: BP 113/66
[2020-08-02] MEDS ORDERED: PHENYTOIN SODIUM 100MG/2ML VIAL IV SCH (21:00)
[2020-08-02] MEDS: PHENYTOIN SODIUM 300MG in SODIUM CHLORIDE 0.9% 50ML IV SCH (21:14)
[2020-08-03] VITALS: BP 94/57
[2020-08-03] MEDS: DEXT 5%/0.45% NACL 1000ML 1,000 ML IV SCH ×2 (01:07→14:29)
[2020-08-03] MEDS: LORAZEPAM 2MG/ML CPJ IV PRN ×4 (01:19→16:50)
[2020-08-03 04:00] VITALS: BP 111/52
[2020-08-03] MEDS: CLOPIDOGREL 75MG TABLET PO SCH (09:00)
[2020-08-03] MEDS: ASPIRIN 81MG EC TABLET PO SCH (09:00)
[2020-08-03] MEDS: LEVETIRACETAM 1,000 MG in SODIUM CHLORIDE 0.9% 100 ML IV SCH ×2 (09:43→21:40)
[2020-08-03] MEDS: CEFTRIAXONE 1,000 MG in DEXTROSE 5% WATER 50 ML IV SCH (09:43)
[2020-08-03] MEDS ORDERED: PHENYTOIN SODIUM 100MG/2ML VIAL IV ONE (11:45)
[2020-08-03] MEDS ORDERED: PHENYTOIN SODIUM 500 MG in SODIUM CHLORIDE 0.9% 50 ML IV SCH (12:00)
[2020-08-03] MEDS: ENOXAPARIN 40MG/0.4ML SYR SUBCUT SCH (13:26)
[2020-08-03 15:00] VITALS: BP 92/50
[2020-08-03 20:00] VITALS: BP 101/55
[2020-08-03] MEDS: PHENYTOIN SODIUM 300MG in SODIUM CHLORIDE 0.9% 50ML IV SCH (22:24)
[2020-08-04] VITALS: BP 105/70
[2020-08-04 04:00] VITALS: BP 100/53
[2020-08-04] MEDS: DEXT 5%/0.45% NACL 1000ML 1,000 ML IV SCH ×2 (05:51→18:15)
[2020-08-04 08:00] VITALS: BP 95/47
[2020-08-04 08:28] LABS: HEMATOCRIT. 28.6 % (42.0-52.0); HEMOGLOBIN. 9.5 g/dL (14.0-18.0); MEAN CORPUSCULAR HEMOGLOBIN 30.8 pg (28.0-32.0); MEAN CORPUSCULAR VOLUME 92.8 fL (80.0-94.0); MEAN PLATELET VOLUME 7.5 fl (7.4-10.4); PLATELET 309 x1000/uL (130-400); RED BLOOD CELL COUNT 3.08 mill/uL (4.7-6.1)
[2020-08-04] MEDS: ASPIRIN 81MG EC TABLET PO SCH (08:30)
[2020-08-04] MEDS: CLOPIDOGREL 75MG TABLET PO SCH (08:33)
[2020-08-04 08:35] LABS: CHLORIDE 106 mEq/L (98-107)
[2020-08-04] MEDS: LEVETIRACETAM 1,000 MG in SODIUM CHLORIDE 0.9% 100 ML IV SCH ×2 (08:35→21:27)
[2020-08-04] MEDS: CEFTRIAXONE 1,000 MG in DEXTROSE 5% WATER 50 ML IV SCH (09:56)
[2020-08-04 12:00] VITALS: BP 96/49
[2020-08-04] MEDS: ENOXAPARIN 40MG/0.4ML SYR SUBCUT SCH (13:03)
[2020-08-04 16:00] VITALS: BP 123/68
[2020-08-04 18:26] LABS: PLATELET ESTIMATE NORMAL
[2020-08-04 20:00] VITALS: BP 132/75
[2020-08-04] MEDS: PHENYTOIN SODIUM 300MG in SODIUM CHLORIDE 0.9% 50ML IV SCH (21:27)
[2020-08-05] VITALS: BP 141/86
[2020-08-05 04:00] VITALS: BP 136/85
[2020-08-05 08:00] VITALS: BP 145/89
[2020-08-05] MEDS: LEVETIRACETAM 1,000 MG in SODIUM CHLORIDE 0.9% 100 ML IV SCH ×2 (09:14→23:57)
[2020-08-05] MEDS: CEFTRIAXONE 1,000 MG in DEXTROSE 5% WATER 50 ML IV SCH (09:16)
[2020-08-05] MEDS: CLOPIDOGREL 75MG TABLET PO SCH (09:17)
[2020-08-05] MEDS: ASPIRIN 81MG EC TABLET PO SCH (09:17)
[2020-08-05] MEDS: LORAZEPAM 2MG/ML CPJ IV PRN (09:22)
[2020-08-05 12:00] VITALS: BP 123/72
[2020-08-05] MEDS: ENOXAPARIN 40MG/0.4ML SYR SUBCUT SCH (13:29)
[2020-08-05 16:12] VITALS: BP 113/61
[2020-08-05] MEDS: DEXT 5%/0.45% NACL 1000ML 1,000 ML IV SCH (18:47)
[2020-08-05 20:15] VITALS: BP 126/62
[2020-08-05] MEDS: PHENYTOIN SODIUM 300MG in SODIUM CHLORIDE 0.9% 50ML IV SCH (21:55)
[2020-08-06 00:08] VITALS: BP 121/57
[2020-08-06 04:00] VITALS: BP 125/67
[2020-08-06 08:00] VITALS: BP 111/59
[2020-08-06] MEDS: LORAZEPAM 2MG/ML CPJ IV PRN (09:37)
[2020-08-06] MEDS: LEVETIRACETAM 1,000 MG in SODIUM CHLORIDE 0.9% 100 ML IV SCH (09:46)
[2020-08-06] MEDS: ASCORBIC ACID 500 MG TABLET PO SCH (09:46)
[2020-08-06] MEDS: ASPIRIN 81MG EC TABLET PO SCH (09:46)
[2020-08-06] MEDS: CLOPIDOGREL 75MG TABLET PO SCH (09:46)
[2020-08-06] MEDS: DEXT 5%/0.45% NACL 1000ML 1,000 ML IV SCH ×2 (09:47→22:41)
[2020-08-06 12:00] VITALS: BP 119/62
[2020-08-06] MEDS: ENOXAPARIN 40MG/0.4ML SYR SUBCUT SCH (13:37)
[2020-08-06 16:00] VITALS: BP 98/53
[2020-08-06] MEDS ORDERED: LACTULOSE 20G/30ML UDC NG PRN (16:15)
[2020-08-06 20:00] VITALS: BP 120/62
[2020-08-06] MEDS: PHENYTOIN SODIUM 300MG in SODIUM CHLORIDE 0.9% 50ML IV SCH (22:41)
[2020-08-07] VITALS (10 sets, daily range): BP systolic 102–138; BP diastolic 52–82
[2020-08-07] MEDS: LEVETIRACETAM 1,000 MG in SODIUM CHLORIDE 0.9% 100 ML IV SCH ×3 (00:17→21:12)
[2020-08-07 07:31] LABS: HEMATOCRIT. 33.1 % (42.0-52.0); HEMOGLOBIN. 10.5 g/dL (14.0-18.0); MEAN CORPUSCULAR HEMOGLOBIN 29.2 pg (28.0-32.0); MEAN CORPUSCULAR VOLUME 92.1 fL (80.0-94.0); MEAN PLATELET VOLUME 7.8 fl (7.4-10.4); PLATELET 277 x1000/uL (130-400); RED CELL DISTRIBUTION WIDTH 13.8 % (11.6-14.6)
[2020-08-07 07:59] LABS: HEPATITIS B SURFACE ANTIGEN NEGATIVE
[2020-08-07 08:29] LABS: HEPATITIS A AB IGM NEGATIVE (NEGATIVE)
[2020-08-07 08:40] LABS: CHLORIDE 94 mEq/L (98-107)
[2020-08-07] MEDS ORDERED: LORAZEPAM 2MG/ML CPJ IV SCH (09:00)
[2020-08-07 09:19] LABS: BG BASE EXCESS 7.9 mmol/L (-2.0-2.0); BG CARBOXYHEMOGLOBIN 0.4 % (0.5-1.5); BG DEOXYHEMOGLOBIN 0.6 % (0.0-5.0); BG HCO3 ACT 33.9 mmol/L (22.0-26.0); BG METHEMOGLOBIN 0.3 % (0.0-1.5); BG OXYGEN SATURATION 99.4 % (92.0-98.5); BG OXYHEMOGLOBIN 98.7 % (94.0-97.0); BG PCO2 53.8 mmHg (35.0-45.0); BG PH 7.417 (7.350-7.450); BG PO2 222.9 mmHg (75.0-100.0); BG SAMPLE SITE RIGHT RADIAL; BG TOTAL HEMOGLOBIN 11.7 g/dL (12.0-18.0); BG VENT MODE MASK - SIMPLE
[2020-08-07] MEDS: ASPIRIN 81MG EC TABLET PO SCH (11:30)
[2020-08-07] MEDS: ASCORBIC ACID 500 MG TABLET PO SCH (11:30)
[2020-08-07] MEDS: CLOPIDOGREL 75MG TABLET PO SCH (11:30)
[2020-08-07] MEDS: ENOXAPARIN 40MG/0.4ML SYR SUBCUT SCH (11:39)
[2020-08-07] MEDS: DEXT 5%/0.45% NACL 1000ML 1,000 ML IV SCH (11:39)
[2020-08-07] MEDS: METRONIDAZOLE 500 MG PREMIX 100 ML IV SCH ×2 (14:12→21:59)
[2020-08-07] MEDS: LEVOFLOXACIN 500MG PREMIX 100 ML IV SCH (14:12)
[2020-08-07] MEDS: FUROSEMIDE 20MG/2ML VIAL IVP SCH (14:12)
[2020-08-07 14:17] LABS: PLATELET ESTIMATE NORMAL
[2020-08-07] MEDS: PHENYTOIN SODIUM 300MG in SODIUM CHLORIDE 0.9% 50ML IV SCH (20:12)
[2020-08-08] VITALS (12 sets, daily range): BP systolic 105–137; BP diastolic 56–89
[2020-08-08] MEDS: DEXT 5%/0.45% NACL 1000ML 1,000 ML IV SCH ×2 (01:05→10:54)
[2020-08-08] MEDS: METRONIDAZOLE 500 MG PREMIX 100 ML IV SCH ×3 (05:20→23:21)
[2020-08-08 07:16] LABS: HEMATOCRIT. 31.3 % (42.0-52.0); HEMOGLOBIN. 10.4 g/dL (14.0-18.0); MEAN CORPUSCULAR HEMOGLOBIN 30.6 pg (28.0-32.0); MEAN PLATELET VOLUME 7.7 fl (7.4-10.4); PLATELET 292 x1000/uL (130-400); RED CELL DISTRIBUTION WIDTH 13.4 % (11.6-14.6)
[2020-08-08] MEDS: ASCORBIC ACID 500 MG TABLET PO SCH (08:40)
[2020-08-08] MEDS: ASPIRIN 81MG EC TABLET PO SCH (08:40)
[2020-08-08] MEDS: FUROSEMIDE 20MG/2ML VIAL IVP SCH (08:40)
[2020-08-08] MEDS: CLOPIDOGREL 75MG TABLET PO SCH (08:40)
[2020-08-08 09:44] LABS: CHLORIDE 95 mEq/L (98-107)
[2020-08-08] MEDS: LEVETIRACETAM 1,000 MG in SODIUM CHLORIDE 0.9% 100 ML IV SCH (10:49)
[2020-08-08] MEDS ORDERED: LORAZEPAM 2MG/ML CPJ IV PRN (11:45)
[2020-08-08 13:18] LABS: PLATELET ESTIMATE NORMAL
[2020-08-08] MEDS: LEVOFLOXACIN 500MG PREMIX 100 ML IV SCH (13:30)
[2020-08-08] MEDS ORDERED: ZONISAMIDE 100MG CAPSULE PO SCH (20:00)
[2020-08-08] MEDS: PHENYTOIN SODIUM 300MG in SODIUM CHLORIDE 0.9% 50ML IV SCH (20:39)
[2020-08-08] MEDS: PANTOPRAZOLE SODIUM 40 MG/VIAL IV SCH (20:45)
[2020-08-08] MEDS: LEVETIRACETAM 1,500 MG in SODIUM CHLORIDE 0.9% 100 ML IV SCH (21:21)
[2020-08-09] VITALS: BP 120/71
[2020-08-09 02:00] VITALS: BP 117/70
[2020-08-09 04:00] VITALS: BP 136/75
[2020-08-09] MEDS: DEXT 5%/0.45% NACL 1000ML 1,000 ML IV SCH ×2 (04:01→19:08)
[2020-08-09] MEDS: METRONIDAZOLE 500 MG PREMIX 100 ML IV SCH ×3 (05:12→23:01)
[2020-08-09 06:00] VITALS: BP 117/72
[2020-08-09 06:23] LABS: HEMOGLOBIN. 10.5 g/dL (14.0-18.0); MEAN CORPUSCULAR HEMOGLOBIN 30.2 pg (28.0-32.0); MEAN PLATELET VOLUME 7.7 fl (7.4-10.4); PLATELET 333 x1000/uL (130-400); RED BLOOD CELL COUNT 3.48 mill/uL (4.7-6.1); RED CELL DISTRIBUTION WIDTH 13.4 % (11.6-14.6)
[2020-08-09 06:26] LABS: CHLORIDE 95 mEq/L (98-107)
[2020-08-09 06:44] LABS: INR 1.2; PARTIAL THROMBOPLASTIN TIME 36.9 sec (23.4-31.0); PROTHROMBIN TIME 12.5 sec (9.6-11.0)
[2020-08-09] MEDS ORDERED: ZONISAMIDE 100MG CAPSULE GT SCH (08:26)
[2020-08-09] MEDS: ASCORBIC ACID 500 MG TABLET PO SCH (08:52)
[2020-08-09] MEDS: FUROSEMIDE 20MG/2ML VIAL IVP SCH (08:55)
[2020-08-09] MEDS: PANTOPRAZOLE SODIUM 40 MG/VIAL IV SCH ×2 (08:55→20:24)
[2020-08-09] MEDS: LEVETIRACETAM 1,500 MG in SODIUM CHLORIDE 0.9% 100 ML IV SCH ×2 (08:55→21:09)
[2020-08-09] MEDS ORDERED: ZONISAMIDE 100MG CAPSULE PO SCH (09:00)
[2020-08-09] MEDS ORDERED: SODIUM CHLORIDE 0.9% 10ML VIAL ONE (10:00)
[2020-08-09] MEDS ORDERED: MIDAZOLAM HCL 5 MG/5 ML VIAL ONE (10:30)
[2020-08-09] MEDS ORDERED: FENTANYL CITRATE/PF 50MCG/ML 2ML VIAL ONE (10:31)
[2020-08-09] MEDS ORDERED: MIDAZOLAM HCL 5 MG/5 ML VIAL IV PRN (11:55)
[2020-08-09] MEDS: ZONISAMIDE 10 MG/ML GT SCH (15:49)
[2020-08-09] MEDS: LEVOFLOXACIN 500MG PREMIX 100 ML IV SCH (16:40)
[2020-08-09 18:57] LABS: PLATELET ESTIMATE NORMAL
[2020-08-09 20:00] VITALS: BP 114/82
[2020-08-09] MEDS ORDERED: PHENYTOIN SODIUM 100MG/2ML VIAL IV ONE ×2 (20:00→20:08)
[2020-08-09] MEDS ORDERED: PHENYTOIN SODIUM 100MG/2ML VIAL IV NR (20:15)
[2020-08-09] MEDS: PHENYTOIN SODIUM 300MG in SODIUM CHLORIDE 0.9% 50ML IV SCH (21:56)
[2020-08-09 22:00] VITALS: BP 124/78
[2020-08-09] MEDS ORDERED: PHENYTOIN SODIUM 300MG in SODIUM CHLORIDE 0.9% 50ML IV NR (22:00)
[2020-08-10] VITALS (14 sets, daily range): BP systolic 93–122; BP diastolic 62–77
[2020-08-10] MEDS: METRONIDAZOLE 500 MG PREMIX 100 ML IV SCH (06:13)
[2020-08-10] MEDS: DEXT 5%/0.45% NACL 1000ML 1,000 ML IV SCH (07:53)
[2020-08-10] MEDS: LEVETIRACETAM 1,500 MG in SODIUM CHLORIDE 0.9% 100 ML IV SCH (08:54)
[2020-08-10] MEDS: ZONISAMIDE 10 MG/ML GT SCH (09:16)
[2020-08-10] MEDS: PANTOPRAZOLE SODIUM 40 MG/VIAL IV SCH (09:16)
[2020-08-10] MEDS: ASCORBIC ACID 500 MG TABLET PO SCH (09:16)
[2020-08-10] MEDS: LEVOFLOXACIN 500MG PREMIX 100 ML IV SCH (12:41)
[2020-08-10] MEDS: ASPIRIN 81MG TABLET PO SCH (13:43)
[2020-08-10] MEDS: ZINC SULFATE 220 MG ( 50 ) CAPSULE PO SCH (13:43)
[2020-08-10] MEDS: CLOPIDOGREL 75MG TABLET PO SCH (13:43)
[2020-08-10] MEDS ORDERED: DOCUSATE SODIUM SUGAR FREE 100MG/10ML UDC NG PRN (16:00)
[2020-08-10] MEDS ORDERED: PANTOPRAZOLE SODIUM 40 MG/VIAL IV SCH (18:00)
[2020-08-10] MEDS: LEVETIRACETAM 500MG/5ML CUP PO SCH (20:24)
[2020-08-10] MEDS: PANTOPRAZOLE 40MG DR TABLET PO SCH (20:24)
[2020-08-10] MEDS ORDERED: ATORVASTATIN CALCIUM 40MG TABLET PO SCH (21:00)
[2020-08-10] MEDS ORDERED: PHENYTOIN SODIUM EXTENDED 100MG CAPSULE PO SCH (21:00)
[2020-08-11] VITALS (9 sets, daily range): BP systolic 105–141; BP diastolic 59–89
[2020-08-11] MEDS: ASPIRIN 81MG TABLET PO SCH (08:56)
[2020-08-11] MEDS: CLOPIDOGREL 75MG TABLET PO SCH (08:58)
[2020-08-11] MEDS: ZINC SULFATE 220 MG ( 50 ) CAPSULE PO SCH (08:58)
[2020-08-11] MEDS: ZONISAMIDE 10 MG/ML GT SCH (08:58)
[2020-08-11] MEDS: PANTOPRAZOLE 40MG DR TABLET PO SCH (08:58)
[2020-08-11] MEDS: ASCORBIC ACID 500 MG TABLET PO SCH (09:00)
[2020-08-11] MEDS ORDERED: PANTOPRAZOLE SODIUM 40 MG/VIAL IV SCH (09:00)
[2020-08-11] MEDS: LEVETIRACETAM 500MG/5ML CUP PO SCH (09:08)
[2020-08-11] MEDS: ENOXAPARIN 40MG/0.4ML SYR SUBCUT SCH (13:53)
[2020-08-12] MEDS ORDERED: ZONISAMIDE 100MG/10ML ORAL SYR GT SCH (09:00)
== END 2020-08-11 17:55 | DRG 100 ==
LOC: ER 07:09 → 8WST 09:54 → EDBEDREQ 09:55 → ENRESERV 11:01 → 8WST 13:08 → 5EST 08-07 10:13
PROVIDERS: ADMIT Hospitalist; ATTEND Hospitalist
PROC: 4A10X4Z Monitoring of Central Nervous Electrical Activity, External Approach (ICD-10-PCS; principal; 2020-08-03)
PROC: 0DH63UZ Insertion of Feeding Device into Stomach, Percutaneous Approach (ICD-10-PCS; 2020-08-09)
DX: G40.901 Epilepsy, unspecified, not intractable, with status epilepticus (principal); I63.9 Cerebral infarction, unspecified; L89.313 Pressure ulcer of right buttock, stage 3; L89.213 Pressure ulcer of right hip, stage 3; E43 Unspecified severe protein-calorie malnutrition; J18.9 Pneumonia, unspecified organism; E72.20 Disorder of urea cycle metabolism, unspecified; R18.8 Other ascites; I87.8 Other specified disorders of veins; I10 Essential (primary) hypertension; Z66 Do not resuscitate; K29.60 Other gastritis without bleeding; R74.01 Elevation of levels of liver transaminase levels; L89.516 Pressure-induced deep tissue damage of right ankle; L89.890 Pressure ulcer of other site, unstageable; D64.9 Anemia, unspecified; L89.322 Pressure ulcer of left buttock, stage 2; I73.9 Peripheral vascular disease, unspecified; R13.12 Dysphagia, oropharyngeal phase; Z20.822 Contact with and (suspected) exposure to COVID-19; S90.822A Blister (nonthermal), left foot, initial encounter; S90.821A Blister (nonthermal), right foot, initial encounter; Z68.27 Body mass index [BMI] 27.0-27.9, adult; X58.XXXA Exposure to other specified factors, initial encounter; Y93.89 Activity, other specified; Y92.89 Other specified places as the place of occurrence of the external cause; Y99.8 Other external cause status
CPT/HCPCS: 36415; 36600; 70551; 71045; 76700; 80053; 80061; 80185; 80305; 80320; 81003; 82040; 82140; 82375; 82550; 82805; 82962; 83605; 83735; 84134; 84145; 84443; 84484; 85025; 86705; 86709; 86803; 87340; 87426; 93005; 93306; 93880; 93923; 93970; 95816; 97162; 97165; 99285; C9113; J0696; J1165; J1650; J1940; J1953; J1956; J2060; J2250; J3010; J3490; J7030; J7050; J7060; G0480